=== PATIENT | male | born 1975 | race American Indian/Alaskan Native ===

== ENCOUNTER 2018-08-21 20:21 | Emergency (ER) | payer SELFPAY ==
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
[2018-08-21] MEDS ORDERED: ADRENALIN ONE (21:29)
[2018-08-21] MEDS ORDERED: XYLOCAINE CARDIAC IV ONE (21:29)
[2018-08-21] MEDS ORDERED: SODIUM BICARBONATE IV ONE (21:29)
== END 2018-08-21 21:45 ==
LOC: ED 20:21
DX: I46.8 Cardiac arrest due to other underlying condition (principal); V03.99XA Pedestrian with other conveyance injured in collision with car, pick-up truck or van, unspecified whether traffic or nontraffic accident, initial encounter; Y93.89 Activity, other specified; Y92.411 Interstate highway as the place of occurrence of the external cause; Y99.8 Other external cause status
CPT/HCPCS: 92950; 99285; J0171; J2001